=== PATIENT | male | born 1940 | race Caucasian/White ===

== ENCOUNTER 2017-06-14 10:18 | Emergency (ER) | payer OTHER ==
[~2017-06-14] VITALS: Ht 182.9 cm; Wt 96.2 kg
[~2017-06-14 10:18] MED LIST: ACETAMINOPHEN500 M4 PO; AMARYL1 MG PO; AMIODARONE HCL200 M1 PO; AMLODIPINE BES1 CAP PO; AMLODIPINE BESY10 M1 PO; AMLODIPINE BESYL5 M1 PO; ASPIRIN CHILDRE81 MG PO; ASPIRIN81 M4 PO; AUGMENTIN 500-1 EACH PO; BYSTOLIC10 M1 PO; CARDIZEM CD 12120 MG PO; CORDARONE 200M200 MG PO; CRESTOR20 M2 PO; CRESTOR40 M2 PO; FISH OIL DR 1,1 EACH PO; FOLIC ACID0.8 M2 PO; FUROSEMIDE20 M1 PO; GLUCOPHAGE1000 M1 PO; KEPPRA 500MG T500 MG PO; KEPPRA1000 M1 PO; KEPPRA500 M1 PO; LEVOTHYROXIN0.025 M1 PO; LEVOTHYROXINE100 MC1 PO; LISINOPRIL10 M1 PO; LISINOPRIL40 M1 PO; MAGNESIUM500 M2 PO; MECLIZINE12.5 MG; METOPROLOL TART25 M1 PO; MONTELUKAST SOD10 M1 PO; MULTIVITAMINS1 EAC9 PO; PRINIVIL10 MG PO; ULTRAM50 M1 PO; VIMPAT50 M1 PO; VITAMIN D-32000 UNI1 PO; XARELTO20 M2 PO
[2017-06-14 10:33] VITALS: BP 174/74
--- NOTE | 2017-06-14 10:54 | ED GI/GU/ABDOMINAL COMPLAINT ---
History of Present Illness General Chief Complaint: Male Genitourinary Problems Stated Complaint: ? uti Source: patient, old records Exam Limitations: no limitations Vital Signs & Intake/Output Vital Signs & Intake/Output Vital Signs Date Time Temp Pulse Resp B/P B/P Pulse O2 O2 Flow FiO2 Mean Ox Delivery Rate 06/14 1157 Room Air 06/14 1033 98.1 65 18 174/74 95 Room Air Allergies Coded Allergies: NO KNOWN ALLERGIES (03/21/14) Reconcile Medications Acetaminophen 500 MG TABLET 1 TAB PO AD PRN PAIN (Reported) Amiodarone (Cordarone) 200 MG TABLET 0.5 TAB PO QAM HEART (Reported) Amlodipine Besylate 10 MG TABLET 0.5 TAB PO QAM bp (Reported) Cholecalciferol (Vitamin D3) (Vitamin D-3) 2,000 UNIT CAPSULE 1 CAP PO QPM VITAMIN SUPPORT (Reported) Furosemide 20 MG TABLET 1 TAB PO EOD HEART HEALTH (Reported) Lacosamide (Vimpat) 50 MG TABLET 50 MG PO BID SEIZURES Levetiracetam (Keppra) 500 MG TABLET 1,000 MG PO Q12 SEIZURES Levothyroxine Sodium 100 MCG TABLET 1 TAB PO 0500 THYROID (Reported) Lisinopril 40 MG TABLET 1 TAB PO QAM BP (Reported) Magnesium Oxide (Magnesium) 500 MG CAPSULE 250 MG PO QAM SUPPLEMENT (Reported ) Metformin HCl (Glucophage) 1,000 MG TABLET 1 TAB PO BID DM (Reported) Metoprolol Tartrate 25 MG TABLET 25 MG PO BID HIGH BLOOD PRESSURE Montelukast Sodium 10 MG TABLET 1 TAB PO AD PRN ALLERGIES (Reported) Multiple Vitamin (Multivitamins) 1 EACH TABLET 1 TAB PO DAILY SUPPLEMENT ( Reported) [place]-3S/Dha/Epa/Fish Oil (Fish Oil Dr 1,000 MG Softgel) 300 MG (250 MG-50 MG)-1 ,000 MG CAPSULE.DR 1 CAP PO BID SUPPLEMENT (Reported) Rivaroxaban (Xarelto) 20 MG TABLET 1 TAB PO QPM A FIB with food Rosuvastatin Calcium (Crestor) 40 MG TABLET 1 TAB PO QPM CHOLESTEROL ( Reported) Triage Note: PT. IS REQUESTING EVALUATION SECONDARY TO BLOOD IN HIS URINE. REPORTS URINARY FREQUENCY THROUGH THE NIGHT. Triage Nurses Notes Reviewed? yes HPI: 77M PMH CAD S/P stent, DM, HTN, HLD, hypothyroidism, questionable CVA, seizure disorder, paroxysmal atrial fibrillation on Xarelto presenting with one day of burning urination and hematuria. Has a history of UTI, last one in January led to seizure. Pain only comes with urination. He denies fever, chills, headache, lightheadedness,confusion, sore throat, chest pain, SOB, abdominal pain, flank pain, diarrhea, dysuria, constipation. Symptoms are consistent with prior UTI. Past History Travel History Traveled to [place] past 21 day No Medical History Any Pertinent Medical History? 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 No Review of Systems Review of Systems Constitutional: Reports: no symptoms. EENTM: Reports: no symptoms. Respiratory: Reports: no symptoms. Cardiovascular: Reports: no symptoms. GI: Reports: no symptoms. Genitourinary: Reports: no symptoms. Musculoskeletal: Reports: no symptoms. Skin: Reports: no symptoms. Neurological/Psychological: Reports: no symptoms. Hematologic/Endocrine: Reports: no symptoms. Immunologic/Allergic: Reports: no symptoms. All Other Systems: Reviewed and Negative Physical Exam Physical Exam General Appearance: well developed/nourished, no apparent distress Head: atraumatic, normal appearance Eyes: Bilateral: normal appearance. Ears, Nose, Throat, Mouth: hearing grossly normal, moist mucous membrane Neck: normal inspection, full range of motion Respiratory: normal breath sounds, chest non-tender, no respiratory distress Cardiovascular: regular rate/rhythm Gastrointestinal: soft, non-tender Back: normal inspection, normal range of motion, No CVA tenderness Extremities: normal range of motion Neurologic/Psych: awake, alert, oriented x 3, normal mood/affect Skin: intact, normal color, warm/dry Core Measures ACS in differential dx? No Sepsis Present: No Sepsis Focused Exam Completed? No Progress Differential Diagnosis: appendicitis, bowel obstruction, epididymitis, hernia, ischemic bowel, orchitis, prostatitis, pyelonephritis, STD, testicular torsion, ureterolithiasis, urinary retention, urethritis, UTI/pyelo Plan of Care: Orders Procedure Date/time Status COMPREHENSIVE METABOLIC PANEL 06/14 1055 Complete CBC WITHOUT DIFFERENTIAL 06/14 1055 Complete URINALYSIS 06/14 1036 Complete Laboratory Tests 06/14/17 1131: Anion Gap 15, Estimated GFR > 60, BUN/Creatinine Ratio 26.7 H, Glucose 170 H, Calcium 8.7, Total Bilirubin 0.5, AST 21, ALT 39, Alkaline Phosphatase 52, Total Protein 6.3, Albumin 3.8, Globulin 2.5, Albumin/Globulin Ratio 1.5, CBC w Diff NO MAN DIFF REQ, RBC 4.28 L, MCV 90.4, MCH 29.8, MCHC 32.9 L, RDW 14.3, MPV 7.5, Gran % 72.8, Lymphocytes % 15.0 L, Monocytes % 10.4 H, Eosinophils % 1.5, Basophils % 0.3, Absolute Granulocytes 6.1, Absolute Lymphocytes 1.3, Absolute Monocytes 0.9 H, Absolute Eosinophils 0.1, Absolute Basophils 0 06/14/17 1049: Urine Color BLDY H, Urine Clarity TURBD H, Urine pH 7.5, Ur Specific [place] 1.020, Urine Protein >=300 H, Urine Ketones TRACE H, Urine Nitrite POS H, Urine Bilirubin NEG@ICTO, Urine Urobilinogen 1.0, Ur Leukocyte Esterase MOD H, Ur Microscopic SEDIMENT EXAMINED, Urine RBC 50-75 H, Urine WBC 25-50 H, Urine Bacteria MOD H, Micro UA Comment MORE INFO: H, Urine Hemoglobin LARGE H, Urine Glucose 100 H Renal ultrasound negative for obstruction. Urine and symptoms suggestive of UTI. Will discharge on PO antibiotics. Initial ED EKG: none Departure Departure Disposition: HOME OR SELF CARE Condition: Stable Clinical Impression Primary Impression: Urinary tract infection with hematuria Referrals: Dior MCADAMS,Ward Zaidi (PCP/Family) Additional Instructions: Follow up with your PCP this week so he can review culture results with you. Drink plenty of water. Return to ER if any new or worsening symptoms. Departure Forms: Customer Survey General Discharge Information Prescriptions: Current Visit Scripts Amoxicillin/Clavulanate Potass (Amox-Clav 875-125 MG Tablet) 1 TAB PO BID #13 TAB
[2017-06-14 11:41] LABS: ABSOLUTE BASOPHIL COUNT 0 /CUMM (0.0-0.2); ABSOLUTE EOSINOPHIL COUNT 0.1 /CUMM (0.0-0.7); ABSOLUTE GRANULOCYTE CT 6.1 /CUMM (1.4-6.5); ABSOLUTE LYMPH COUNT 1.3 /CUMM (1.2-3.4); ABSOLUTE MONOCYTE COUNT 0.9 /CUMM (0.10-0.60); BASOPHIL % 0.3 % (0.0-2.0); EOSINOPHIL % 1.5 % (0-5); GRANULOCYTE % 72.8 % (42.2-75.2); HEMATOCRIT 38.7 % (42-52); MEAN CORPUSCULAR HGB 29.8 PG (27.0-31.0); MEAN CORPUSCULAR HGB CONC 32.9 G/DL (33.0-37.0); MEAN CORPUSCULAR VOLUME 90.4 FL (80.0-94.0); MEAN PLATELET VOLUME 7.5 FL (7.4-10.4); PLATELET COUNT 250 /CUMM (130-400); RBC DISTRIBUTION WIDTH 14.3 % (11.5-14.5); RED BLOOD CELL CT 4.28 /CUMM (4.70-6.10); WHITE BLOOD CELL COUNT 8.4 /CUMM (4.8-10.8)
--- NOTE | 2017-06-14 11:42 | ULTRASOUND REPORT ---
EXAMINATION: US RETROPERITONEAL COMPLETE (RENAL) CLINICAL INFORMATION: History of kidney stones. Patient has dysuria and hematuria. Evaluate for obstruction/hydronephrosis.. COMPARISON: None TECHNIQUE: Real-time imaging of the kidneys and bladder. FINDINGS: RIGHT KIDNEY: 10.3 x 5.4 x 4.8 cm (SAG x AP x TRV). The kidney is normal in size, contour, and echogenicity. Renal cortical thickness is normal. No calculi or focal parenchymal lesions. No hydronephrosis. LEFT KIDNEY: 10.8 x 6.3 x 5.1 cm (SAG x AP x TRV). The kidney has normal cortical thickness and echotexture. 0.3 cm echogenic focus with associated twinkle artifact in the interpolar region is consistent with a calyceal stone. No evidence of renal mass. No hydronephrosis. BLADDER: The bladder is suboptimally distended. 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 No bladder calculi or bladder debris. Right and left ureteral jets are observed. Prostate gland has an estimated size of 3.1 x 3.7 x 3 cm. IMPRESSION: 1. No upper urinary tract obstruction. 2. Small, 0.3 cm calculus of the mid left kidney. 3. There is a diverticulum of the right posterolateral bladder wall. The bladder wall is diffusely thickened. 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 However, prostate gland is not enlarged, and there is no evidence of bladder debris or bladder calculi.
[2017-06-14] MEDS ORDERED: AMOX-CLAV 875-1 EACH PO (12:02)
== END 2017-06-14 12:12 ==
LOC: ERH 10:18
PROVIDERS: Internal Medicine
DX: N39.0 Urinary tract infection, site not specified (principal)
CPT/HCPCS: 76775; 81001

== ENCOUNTER → 2017-08-28 | Day surgery (SDC) | payer OTHER ==
[~2017-08-28] VITALS: Ht 182.9 cm; Wt 97.5 kg
[~2017-08-28] MED LIST changes: +AMOX-CLAV 875-1 EACH PO; +KEPPRA750 M1 PO; +TOPROL XL50 M1 PO
--- NOTE | 2017-09-03 11:58 | Operative Report ---
Operative/Inv Procedure Report Surgery Date: 08/28/17 Name of Procedure: Excision of pilonidal cyst with intermediate complexity closure Pre-Operative Diagnosis: Recurrent Pilonidal cyst with abscess Post-Operative Diagnosis: Same Estimated Blood Loss: scant Surgeon/Psychiatric Aide Instructor: Jasmyne MCADAMS,Juan Hilton Anesthesia: general endotracheal tube Operative/Procedure Note Note: Patient was placed on the OR table supine, after successful induction of general anesthesia pt was turned into prone, and then the buttocks were taped clipped prepped and draped in the usual sterile fashion. The indurated / healing abscess cavity area was at the top of the gluteal cleft to the left. An incision was planned to excise that upper portion of gluteal cleft that contains the crypts and then continued superiorly to include and to excise the abscess cavity and the cyst, there was some scarring from previous excision. This midline elliptical incision was drawn and then injected with local anesthetic and then made with a 15 blade. Once through the dermis, the excision proceeded laterally with cautery and deep to the fascia covering the coccyx, excising this scarred and granulation tissue in one piece. After this was removed the space was inspected for hemostasis especially at the dermis, with cautery and then reapproximated in layers with some undermining, with multiple interrupted 3-0 Vicryl sutures followed by 4-0 nylon for the skin itself, followed by bacitracin and fluff and gauze. EBL minimal lap and sponge counts correct wound expectancy contaminated IV fluids crystalloid complications none patient tolerated the procedure well was awakened extubated and returned to the recovery room in satisfactory condition.
== END ==
LOC: STS 02:43
DX: L05.01 Pilonidal cyst with abscess (principal); I48.91 Unspecified atrial fibrillation; Z79.01 Long term (current) use of anticoagulants; I10 Essential (primary) hypertension; E11.9 Type 2 diabetes mellitus without complications; Z79.84 Long term (current) use of oral hypoglycemic drugs; E03.9 Hypothyroidism, unspecified
CPT/HCPCS: 88304; J0131; J0690; J2250; J3490